=== PATIENT | male | born 1965 ===

== ENCOUNTER 2025-02-08 11:29 | Outpatient (REF) | payer OTHER, SELFPAY ==
[2025-02-08 14:42] LABS: Abs Immature Grans 0.01 10^3/uL (0.0-0.06); Absolute Basophil Count 0.03 10^3/uL (0.0-0.2); Absolute Eosinophil Count 0.05 10^3/uL (0.0-0.7); Absolute Lymphocyte Count 1.44 10^3/uL (1.2-3.4); Absolute Monocyte Count 0.36 10^3/uL (0.1-0.8); Absolute Neutrophil Count 2.47 10^3/uL (1.2-6.7); Basophils % 0.7 %; Eosinophils % 1.1 %; HCT 43.1 % (40.0-50.0); HGB 14.9 g/dL (13.5-17.5); Immature Grans % 0.2 %; MCH 30.6 pg (27.0-33.0); MCHC 34.6 % (32.0-36.0); MCV 89 fL (80-95); MPV 9.2 fL (8.0-11.0); Monocytes % 8.3 %; Neutrophils % 56.7 %; Platelet Count 221 10^3/uL (130-400); RBC 4.87 10^6/uL (4.36-5.78); RDW 12.2 % (11.8-14.1); RDW-SD 39.8 fL; WBC 4.36 10^3/uL (4.4-10.8)
[2025-02-08 15:31] LABS: ALT 37 U/L (16-63); AST 20 U/L (15-37); Albumin 4.4 g/dL (3.4-5.0); Alkaline Phosphatase 59 U/L (46-116); Anion Gap 9.6 mmol/L (3-11); BUN 15 mg/dL (7-18); Bilirubin, Total 0.5 mg/dL (0.2-1.0); CO2 30.4 mmol/L (21.0-32.0); CREATININE 1.2 mg/dL (0.70-1.30); Calcium 9.4 mg/dL (8.5-10.1); Calculated LDL 124 mg/dL (<100); Chloride 98 mmol/L (98-107); Cholesterol 211 mg/dL (<200); Estimated GFR 69.66 (mL/min/1.73m2); Glucose 113 mg/dL (74-106); HDL Cholesterol 41 mg/dL (>or=40); Sodium 138 mmol/L (136-145); Total Protein 7.1 g/dL (6.4-8.2); Triglyceride 231 mg/dL (<150)
[2025-02-08 17:11] LABS: Uric Acid 7.5 mg/dL (3.5-7.2)
== END 2025-02-08 11:30 | disposition home or self-care (01) ==
LOC: NCHCN 11:29
PROVIDERS: Visit Provider Family Medicine
DX: E78.1 Pure hyperglyceridemia (principal); I10 Essential (primary) hypertension; M10.9 Gout, unspecified
CPT/HCPCS: 80053; 80061; 84550; 85025